=== PATIENT | female | born 1955 | race Asian ===

== ENCOUNTER 2017-10-20 08:08 | Outpatient (CLI) | payer OTHER ==
--- NOTE | 2017-10-20 14:36 | Mammography Report ---
Screening mammogram: Routine views demonstrates bilateral focal asymmetries. The breast pattern otherwise is that of intermediate fibroglandular density in a symmetric distribution. No calcification. CAD used. Impression: Bilateral asymmetries. Recommendation: Prior exams have been requested for comparison. Final recommendation forthcoming after comparison. BI-RADS CATEGORY: 0 = Needs additional imaging evaluation ACR BI-RADS MAMMOGRAPHIC CODES: 0 = Needs additional imaging evaluation; 1 = Negative; 2 = Benign; 3 = Probably benign; 4 = Suspicious; 5 = Malignant; 6 = Known biopsy-proven malignancy COMMENT: 1. Dense breast tissue, i.e., adenosis, fibrocystic changes, etc., may obscure an underlying neoplasm. 2. Approximately 10% of cancers are not detected with mammography. 3. A negative mammography report should not delay biopsy if a clinically suspicious mass is present.
== END 2017-10-20 08:09 | disposition home or self-care (01) ==
LOC: MAMMO 08:08
PROVIDERS: ATTEND Family Medicine
DX: Z12.31 Encounter for screening mammogram for malignant neoplasm of breast (principal)
CPT/HCPCS: 77067

== ENCOUNTER 2017-11-04 09:24 | Outpatient (CLI) | payer OTHER ==
--- NOTE | 2017-11-04 10:02 | Mammography Report ---
Left mammogram: Recall for left asymmetry. Additional imaging again questions the asymmetry in the spot CC projection however is not identified in the rolled views nor on the lateral projections. Impressions: Questionable asymmetry. Probably benign. Recommendation: Repeat exam in 6 months to confirm absence of any change. BI-RADS CATEGORY: 3 = Probably benign ACR BI-RADS MAMMOGRAPHIC CODES: 0 = Needs additional imaging evaluation; 1 = Negative; 2 = Benign; 3 = Probably benign; 4 = Suspicious; 5 = Malignant; 6 = Known biopsy-proven malignancy COMMENT: 1. Dense breast tissue, i.e., adenosis, fibrocystic changes, etc., may obscure an underlying neoplasm. 2. Approximately 10% of cancers are not detected with mammography. 3. A negative mammography report should not delay biopsy if a clinically suspicious mass is present.
== END 2017-11-04 09:25 | disposition home or self-care (01) ==
LOC: MAMMO 09:24
PROVIDERS: ATTEND Family Medicine
DX: R92.8 Other abnormal and inconclusive findings on diagnostic imaging of breast (principal)